=== PATIENT | male | born 1970 | race Caucasian/White ===

== ENCOUNTER 2022-06-12 10:39 | Inpatient (IN) ==
[2022-06-12] MEDS ORDERED: SODIUM CHLORIDE 0.9% 1,000 ML IV STA ×2 (11:40→13:44)
[2022-06-12 13:19] LABS: Basophils # 0.1 10*3/uL (0.0-0.2); Basophils % 0.4 % (0.0-0.8); Eosinophils # 0.1 10*3/uL (0.0-0.87); Eosinophils % 0.5 % (0.00-10.9); Hematocrit 36.8 VOL% (42.0-52.0); Hemoglobin 12.6 GM/DL (14.0-18.0); Immature Granulocytes % 3.6 %; Immature Granulocytes Absolute 0.83 #; Lymphocytes # 1.7 10*3/uL (1.4-4.0); Lymphocytes % 7.3 % (21.2-54.2); Mean Corpuscular HGB Conc 34.2 GM/DL (32-36); Mean Corpuscular Volume 96.8 FL (87-102); Mean Platelet Volume 10.6 FL (9.6-12.0); Monocytes # 2.8 10*3/uL (0.11-0.8); Neutrophils % 76.2 % (38.7-73.9); Platelet Count 59 T/CUMM (130-400); Red Cell Distribution Width 16.3 % (9.3-17.3)
[2022-06-12 13:27] LABS: PT Patient Result 21.4 SECS (10.1-12.1); Partial Thromboplastin Time 43.9 SECS (23.7-32.9)
[2022-06-12 13:38] LABS: Alanine Aminotransferase 33 U/L (16-61); Albumin 1.9 G/DL (3.4-5.0); Alkaline Phosphatase 260 U/L (45-117); Aspartate Amino Transferase 48 U/L (0-37); Blood Urea Nitrogen 13 MG/DL (7-18); Calcium 7.7 MG/DL (8.5-10.1); Carbon Dioxide 24 MMOL/L (21-32); Chloride 105 MMOL/L (98-107); Glucose 128 MG/DL (74-106); Osmolality,Calculated 269.2 MOS/KG (273-304); Potassium 4.2 MMOL/L (3.5-5.1); Sodium 134 MMOL/L (136-145); Total Protein 4.9 G/DL (6.4-8.2)
[2022-06-12] MEDS ORDERED: cefOXitin 1,000 MG in SODIUM CHLORIDE 0.9% 100 ML IV STA (13:40)
[2022-06-12] MEDS ORDERED: GENTAMICIN INJ 160 MG in SODIUM CHLORIDE 0.9% 100 ML IV STA (13:41)
[2022-06-12 13:45] LABS: Band Neutrophils 4 % (0-10); Eosinophils 1 % (0-10); Lymphocytes 11 % (20-55); Total Cells Counted 100
[2022-06-12 13:46] LABS: Platelet Estimate Decreased
[2022-06-12] MEDS ORDERED: ACETAMINOPHEN 325 MG TABLET PO PRN (14:01)
[2022-06-12] MEDS ORDERED: GLUCAGON 1 MG VIAL IM PRN (14:01)
[2022-06-12] MEDS ORDERED: DEXTROSE 10% 250 ML BAG IV PRN (14:01)
[2022-06-12] MEDS: ONDANSETRON 4 MG/2 ML VIAL IV PRN ×2 (14:53→20:43)
[2022-06-12] MEDS: MORPHINE 2 MG/1 ML SYRINGE IV PRN ×2 (14:54→20:46)
[2022-06-12] MEDS ORDERED: cefTRIAXone 2,000 MG in SODIUM CHLORIDE 0.9% 100 ML IV SCH (15:00)
[2022-06-12 15:02] LABS: Bilirubin,Urine Large mg/dL (Negative); Blood, Urine Trace mg/dL (Negative); Glucose,Urine (UA) Negative (Negative); Ketones,Urine Trace mg/dL (Negative); Nitrite,Urine Negative (Negative); Protein,Urine Negative (Negative); Urine Appearance Clear (Clear); Urine Color Amber (Yellow)
[2022-06-12 15:05] LABS: Mucus,Urine Occasional /LPF (Occasional); RBC,Urine 9 /HPF (0-4); Squamous Epithelial Cell,Urine Occasional /HPF (0-10)
[2022-06-12] MEDS ORDERED: SODIUM CHLORIDE 0.9% 1,000 ML IV PRN (16:21)
[2022-06-12] MEDS: PIPERACILLIN/TAZOBACTAM 3,375 MG in SODIUM CHLORIDE 0.9% 100 ML IV SCH (22:40)
[2022-06-13] MEDS: MORPHINE 2 MG/1 ML SYRINGE IV PRN ×4 (03:27→22:36)
[2022-06-13] MEDS: PIPERACILLIN/TAZOBACTAM 3,375 MG in SODIUM CHLORIDE 0.9% 100 ML IV SCH ×3 (05:57→20:26)
[2022-06-13 06:33] LABS: Basophils # 0.1 10*3/uL (0.0-0.2); Basophils % 0.8 % (0.0-0.8); Eosinophils % 5.7 % (0.00-10.9); Hematocrit 33.4 VOL% (42.0-52.0); Hemoglobin 11.4 GM/DL (14.0-18.0); Immature Granulocytes % 2.2 %; Immature Granulocytes Absolute 0.38 #; Lymphocytes % 17.4 % (21.2-54.2); Mean Corpuscular HGB Conc 34.1 GM/DL (32-36); Mean Corpuscular Volume 97.7 FL (87-102); Mean Platelet Volume 10.2 FL (9.6-12.0); Monocytes # 1.8 10*3/uL (0.11-0.8); Monocytes % 10.7 % (1.7-12.7); Neutrophils % 63.2 % (38.7-73.9); Platelet Count 49 T/CUMM (130-400); Red Blood Count 3.42 MC/CUMM (3.8-5.5); Red Cell Distribution Width 16.3 % (9.3-17.3); White Blood Count 17.2 T/CUMM (4-12)
[2022-06-13 06:53] LABS: Platelet Estimate Decreased
[2022-06-13 07:04] LABS: Albumin 1.7 G/DL (3.4-5.0); Bilirubin,Total 9.1 MG/DL (0.20-1.00); Calcium 7.5 MG/DL (8.5-10.1); Osmolality,Calculated 270.8 MOS/KG (273-304); Potassium 3.9 MMOL/L (3.5-5.1); Thyroid Stimulating Hormone 3.09 uIU/ml (0.358-3.74); Total Protein 4.7 G/DL (6.4-8.2)
[2022-06-13 08:03] LABS: INR 1.8; PT Patient Result 19.3 SECS (10.1-12.1)
[2022-06-13] MEDS ORDERED: MAGNESIUM SULF RIDER 2 GM/50 ML PREMIX IV ONE (08:30)
[2022-06-13] MEDS: PANTOPRAZOLE 40 MG TABLET PO SCH (11:36)
[2022-06-14] MEDS: PIPERACILLIN/TAZOBACTAM 3,375 MG in SODIUM CHLORIDE 0.9% 100 ML IV SCH ×2 (05:05→14:19)
[2022-06-14] MEDS: MORPHINE 2 MG/1 ML SYRINGE IV PRN ×2 (05:05→09:32)
[2022-06-14 05:49] LABS: Basophils # 0.1 10*3/uL (0.0-0.2); Basophils % 1.3 % (0.0-0.8); Eosinophils # 1.4 10*3/uL (0.0-0.87); Eosinophils % 14.5 % (0.00-10.9); Hematocrit 35.2 VOL% (42.0-52.0); Immature Granulocytes % 4.6 %; Immature Granulocytes Absolute 0.43 #; Lymphocytes # 2.4 10*3/uL (1.4-4.0); Lymphocytes % 25.7 % (21.2-54.2); Mean Corpuscular HGB Conc 34.1 GM/DL (32-36); Mean Corpuscular Volume 97.5 FL (87-102); Monocytes % 11.1 % (1.7-12.7); Neutrophils % 42.8 % (38.7-73.9); Platelet Count 57 T/CUMM (130-400); Red Blood Count 3.61 MC/CUMM (3.8-5.5); Red Cell Distribution Width 16.2 % (9.3-17.3); White Blood Count 9.3 T/CUMM (4-12)
[2022-06-14 06:13] LABS: Calcium 7.6 MG/DL (8.5-10.1); Osmolality,Calculated 271.8 MOS/KG (273-304); Potassium 3.8 MMOL/L (3.5-5.1)
[2022-06-14 06:40] LABS: Eosinophils 12 % (0-10); Lymphocytes 27 % (20-55); Platelet Estimate Decreased; Total Cells Counted 100
[2022-06-14] MEDS: PANTOPRAZOLE 40 MG TABLET PO SCH (09:31)
[2022-06-14] MEDS ORDERED: FUROSEMIDE 20 MG TABLET PO PRN (10:46)
[2022-06-14] MEDS ORDERED: AMOXICILLIN/CLAV 500 MG TABLET PO SCH (15:00)
[2022-06-14 15:47] VITALS: BP 117/52
== END 2022-06-14 17:11 | disposition home or self-care (01) | DRG 872 ==
LOC: N.ED 10:39 → N.EDINP 13:59 → SUATTDRO 13:59 → N.EDINP 15:19 → N.5E 15:28
PROVIDERS: ADMIT Hospitalist; ATTEND Internal Medicine

== ENCOUNTER 2022-07-02 21:01 | Inpatient (IN) ==
[2022-07-02] MEDS ORDERED: HYDROmorphone 1 MG/1 ML SYRINGE IV STA (21:58)
[2022-07-02] MEDS ORDERED: ONDANSETRON 4 MG/2 ML VIAL IV STA (21:58)
[2022-07-02] MEDS ORDERED: PIPERACILLIN/TAZOBACTAM 3,375 MG in SODIUM CHLORIDE 0.9% 100 ML IV STA (21:58)
[2022-07-02] MEDS ORDERED: IBUPROFEN 800 MG TABLET PO STA (21:58)
[2022-07-02] MEDS ORDERED: ALBUTEROL/IPRATROPIUM 3 ML NEB RESP TX STA (22:03)
[2022-07-02] MEDS ORDERED: methylPREDNISolone SOD SUC 125 MG/2 ML VIAL IV STA (22:03)
[2022-07-02 22:52] LABS: Basophils # 0.1 10*3/uL (0.0-0.2); Basophils % 0.5 % (0.0-0.8); Eosinophils # 0.1 10*3/uL (0.0-0.87); Eosinophils % 0.6 % (0.00-10.9); Hematocrit 36.1 VOL% (42.0-52.0); Hemoglobin 12.8 GM/DL (14.0-18.0); Immature Granulocytes % 1.1 %; Immature Granulocytes Absolute 0.17 #; Lymphocytes # 2.1 10*3/uL (1.4-4.0); Lymphocytes % 14.1 % (21.2-54.2); Mean Corpuscular HGB Conc 35.5 GM/DL (32-36); Mean Corpuscular Volume 94.8 FL (87-102); Mean Platelet Volume 10.8 FL (9.6-12.0); Monocytes # 1.8 10*3/uL (0.11-0.8); Monocytes % 12.1 % (1.7-12.7); Neutrophils % 71.6 % (38.7-73.9); Platelet Count 56 T/CUMM (130-400); Red Blood Count 3.81 MC/CUMM (3.8-5.5); Red Cell Distribution Width 16.3 % (9.3-17.3); White Blood Count 15.1 T/CUMM (4-12)
[2022-07-02 23:08] LABS: Alanine Aminotransferase 49 U/L (16-61); Alkaline Phosphatase 245 U/L (45-117); Amylase 40 U/L (25-115); Aspartate Amino Transferase 80 U/L (0-37); Blood Urea Nitrogen 13 MG/DL (7-18); Calcium 7.5 MG/DL (8.5-10.1); Carbon Dioxide 25 MMOL/L (21-32); Chloride 105 MMOL/L (98-107); Glucose 121 MG/DL (74-106); Osmolality,Calculated 273.8 MOS/KG (273-304); Potassium 3.5 MMOL/L (3.5-5.1); Sodium 137 MMOL/L (136-145); Total Protein 4.8 G/DL (6.4-8.2)
[2022-07-03] MEDS ORDERED: MAGNESIUM SULF RIDER 2 GM/50 ML PREMIX IV STA (00:08)
[2022-07-03] MEDS ORDERED: SODIUM CHLORIDE 0.9% 1,000 ML IV STA ×2 (00:17→06:27)
[2022-07-03] MEDS ORDERED: ALUMINUM/MAGNES/SIMETH MAX STR 30 ML UDCUP PO PRN (01:12)
[2022-07-03] MEDS ORDERED: DEXTROSE 10% 250 ML BAG IV PRN (01:12)
[2022-07-03] MEDS ORDERED: SODIUM CHLORIDE 0.9% 1,800 ML IV STA (01:12)
[2022-07-03] MEDS ORDERED: GLUCAGON 1 MG VIAL IM PRN (01:12)
[2022-07-03] MEDS ORDERED: cefTRIAXone 2,000 MG in SODIUM CHLORIDE 0.9% 100 ML IV SCH (01:30)
[2022-07-03] MEDS: ONDANSETRON 4 MG/2 ML VIAL IV PRN ×2 (02:48→06:28)
[2022-07-03] MEDS: MORPHINE 2 MG/1 ML SYRINGE IV PRN ×5 (02:49→21:37)
[2022-07-03 03:12] LABS: Bacteria,Urine Occasional /HPF (Few); Mucus,Urine Occasional /LPF (Occasional); RBC,Urine 9 /HPF (0-4); Squamous Epithelial Cell,Urine Occasional /HPF (0-10)
[2022-07-03 03:14] LABS: Bilirubin,Urine Moderate mg/dL (Negative); Blood, Urine Small mg/dL (Negative); Glucose,Urine (UA) Negative (Negative); Ketones,Urine Negative (Negative); Nitrite,Urine Negative (Negative); Protein,Urine Trace mg/dL (Negative); Urine Appearance Clear (Clear); Urine Color Amber (Yellow); Urine Urobilinogen 0.2 eU/dL (<2.0); Urine pH 5.5 (4.5-8.0)
[2022-07-03 04:32] LABS: Basophils # 0.1 10*3/uL (0.0-0.2); Basophils % 0.4 % (0.0-0.8); Eosinophils # 0.1 10*3/uL (0.0-0.87); Eosinophils % 0.9 % (0.00-10.9); Hematocrit 35.3 VOL% (42.0-52.0); Hemoglobin 12.3 GM/DL (14.0-18.0); Immature Granulocytes Absolute 0.13 #; Lymphocytes # 1.3 10*3/uL (1.4-4.0); Lymphocytes % 10.1 % (21.2-54.2); Mean Corpuscular HGB Conc 34.8 GM/DL (32-36); Monocytes # 0.8 10*3/uL (0.11-0.8); Monocytes % 6.2 % (1.7-12.7); Neutrophils % 81.4 % (38.7-73.9); Platelet Count 42 T/CUMM (130-400); Red Blood Count 3.64 MC/CUMM (3.8-5.5); Red Cell Distribution Width 16.3 % (9.3-17.3)
[2022-07-03 04:42] LABS: INR 2.1; PT Patient Result 22.3 SECS (10.1-12.1)
[2022-07-03 04:48] LABS: Osmolality,Calculated 274.8 MOS/KG (273-304); Potassium 3.6 MMOL/L (3.5-5.1)
[2022-07-03 04:59] LABS: Albumin 1.7 G/DL (3.4-5.0); Bilirubin,Direct 4.96 MG/DL (0.0-0.20); Bilirubin,Indirect 6.9 MG/DL (0.0-1.0); Bilirubin,Total 11.9 MG/DL (0.20-1.00); Total Protein 4.5 G/DL (6.4-8.2)
[2022-07-03 05:02] LABS: Platelet Estimate Decreased
[2022-07-03] MEDS: ALBUTEROL 2.5 MG/3 ML NEB RESP TX SCH ×3 (07:10→19:00)
[2022-07-03] MEDS: PANTOPRAZOLE 40 MG TABLET PO SCH (10:51)
[2022-07-03] MEDS: DOCUSATE SODIUM 100 MG CAPSULE PO SCH ×2 (10:51→21:29)
[2022-07-03] MEDS: guaiFENesin/DM ER 600-30 MG TABLET PO SCH ×2 (10:51→21:29)
[2022-07-03] MEDS: SODIUM CHLORIDE 0.9% 1,000 ML IV SCH (13:30)
[2022-07-03] MEDS: PIPERACILLIN/TAZOBACTAM 3,375 MG in SODIUM CHLORIDE 0.9% 100 ML IV SCH ×2 (14:15→21:42)
[2022-07-03] MEDS ORDERED: ALBUMIN 25% 25 GM/100 ML VIAL IV ONE (15:43)
[2022-07-04] MEDS: ALBUTEROL 2.5 MG/3 ML NEB RESP TX SCH ×5 (00:28→19:23)
[2022-07-04] MEDS: MORPHINE 2 MG/1 ML SYRINGE IV PRN ×4 (01:36→21:55)
[2022-07-04] MEDS: SODIUM CHLORIDE 0.9% 1,000 ML IV SCH ×2 (04:53→12:42)
[2022-07-04] MEDS: PIPERACILLIN/TAZOBACTAM 3,375 MG in SODIUM CHLORIDE 0.9% 100 ML IV SCH ×3 (06:30→22:00)
[2022-07-04 07:32] LABS: Basophils % 0.2 % (0.0-0.8); Eosinophils % 0.2 % (0.00-10.9); Hematocrit 35.4 VOL% (42.0-52.0); Hemoglobin 12.3 GM/DL (14.0-18.0); Immature Granulocytes % 2.1 %; Immature Granulocytes Absolute 0.42 #; Lymphocytes # 1.5 10*3/uL (1.4-4.0); Lymphocytes % 7.5 % (21.2-54.2); Mean Corpuscular HGB Conc 34.7 GM/DL (32-36); Mean Corpuscular Volume 96.2 FL (87-102); Mean Platelet Volume 11.4 FL (9.6-12.0); Monocytes # 1.4 10*3/uL (0.11-0.8); Monocytes % 6.8 % (1.7-12.7); Neutrophils % 83.2 % (38.7-73.9); Platelet Count 45 T/CUMM (130-400); Red Blood Count 3.68 MC/CUMM (3.8-5.5); Red Cell Distribution Width 15.9 % (9.3-17.3); White Blood Count 20.2 T/CUMM (4-12)
[2022-07-04 07:35] LABS: INR 2.2
[2022-07-04 07:53] LABS: Band Neutrophils 6 % (0-10); Lymphocytes 3 % (20-55); Total Cells Counted 100
[2022-07-04 07:56] LABS: Albumin 1.9 G/DL (3.4-5.0); Calcium 7.7 MG/DL (8.5-10.1); Macrocytosis Slight; Osmolality,Calculated 283.8 MOS/KG (273-304); Potassium 3.7 MMOL/L (3.5-5.1); Total Protein 4.9 G/DL (6.4-8.2)
[2022-07-04 07:57] LABS: Acanthocytes Few; Burr Cells Slight; Platelet Estimate Decreased
[2022-07-04 08:01] LABS: Bilirubin,Total 12.6 MG/DL (0.20-1.00)
[2022-07-04] MEDS ORDERED: PHYTONADIONE INJ 2.5 MG in SODIUM CHLORIDE 0.9% 25 ML IV ONE (08:56)
[2022-07-04] MEDS ORDERED: VANCOMYCIN INJ 1,000 MG in SODIUM CHLORIDE 0.9% 250 ML IV SCH (09:00)
[2022-07-04] MEDS: PANTOPRAZOLE 40 MG TABLET PO SCH (10:05)
[2022-07-04] MEDS: guaiFENesin/DM ER 600-30 MG TABLET PO SCH ×2 (10:05→21:53)
[2022-07-04] MEDS: DOCUSATE SODIUM 100 MG CAPSULE PO SCH ×2 (10:05→21:53)
[2022-07-04] MEDS ORDERED: VANCOMYCIN INJ 2,000 MG in SODIUM CHLORIDE 0.9% 500 ML IV ONE (11:00)
[2022-07-04 12:48] LABS: INR 2.1; PT Patient Result 22.4 SECS (10.1-12.1)
[2022-07-04] MEDS ORDERED: PHYTONADIONE INJ 5 MG in SODIUM CHLORIDE 0.9% 50 ML IV ONE (15:17)
[2022-07-04] MEDS: VANCOMYCIN INJ 1,500 MG in SODIUM CHLORIDE 0.9% 500 ML IV SCH (23:21)
[2022-07-05] MEDS ORDERED: ALBUTEROL/IPRATROPIUM 3 ML NEB RESP TX ONE (01:01)
[2022-07-05] MEDS: ALBUTEROL 2.5 MG/3 ML NEB RESP TX SCH ×4 (01:13→19:25)
[2022-07-05 05:15] LABS: Basophils # 0.1 10*3/uL (0.0-0.2); Basophils % 0.3 % (0.0-0.8); Eosinophils # 0.1 10*3/uL (0.0-0.87); Eosinophils % 0.4 % (0.00-10.9); Hematocrit 34.7 VOL% (42.0-52.0); Hemoglobin 12.1 GM/DL (14.0-18.0); Immature Granulocytes % 4.4 %; Immature Granulocytes Absolute 0.84 #; Lymphocytes # 1.7 10*3/uL (1.4-4.0); Lymphocytes % 9.1 % (21.2-54.2); Mean Corpuscular HGB Conc 34.9 GM/DL (32-36); Mean Corpuscular Volume 95.3 FL (87-102); Mean Platelet Volume 11.3 FL (9.6-12.0); Monocytes # 2.1 10*3/uL (0.11-0.8); Monocytes % 10.8 % (1.7-12.7); NRBC # 0.03 10*3/uL; Platelet Count 57 T/CUMM (130-400); Red Blood Count 3.64 MC/CUMM (3.8-5.5); White Blood Count 19.1 T/CUMM (4-12)
[2022-07-05 05:24] LABS: INR 2.1; PT Patient Result 21.7 SECS (10.1-12.1)
[2022-07-05] MEDS: PIPERACILLIN/TAZOBACTAM 3,375 MG in SODIUM CHLORIDE 0.9% 100 ML IV SCH ×3 (05:28→22:11)
[2022-07-05] MEDS: MORPHINE 2 MG/1 ML SYRINGE IV PRN ×3 (05:32→22:04)
[2022-07-05 05:42] LABS: Band Neutrophils 3 % (0-10); Lymphocytes 5 % (20-55); Total Cells Counted 100
[2022-07-05 05:43] LABS: Microcytosis Slight; Ovalocytes Slight; Platelet Estimate Decreased
[2022-07-05 05:53] LABS: Albumin 1.9 G/DL (3.4-5.0); Bilirubin,Total 10.3 MG/DL (0.20-1.00); Calcium 8.1 MG/DL (8.5-10.1); Osmolality,Calculated 280.7 MOS/KG (273-304); Potassium 3.9 MMOL/L (3.5-5.1); Total Protein 4.9 G/DL (6.4-8.2)
[2022-07-05] MEDS ORDERED: PHYTONADIONE 10 MG/1 ML AMP SUBCUT ONE (08:32)
[2022-07-05] MEDS ORDERED: FUROSEMIDE 40 MG TABLET PO SCH (09:00)
[2022-07-05] MEDS: DOCUSATE SODIUM 100 MG CAPSULE PO SCH ×2 (09:20→22:04)
[2022-07-05] MEDS: PANTOPRAZOLE 40 MG TABLET PO SCH (09:21)
[2022-07-05] MEDS: guaiFENesin/DM ER 600-30 MG TABLET PO SCH ×2 (09:21→22:03)
[2022-07-05] MEDS: VANCOMYCIN INJ 1,500 MG in SODIUM CHLORIDE 0.9% 500 ML IV SCH (13:13)
[2022-07-05] MEDS: FUROSEMIDE 40 MG TABLET PO SCH (16:10)
[2022-07-05] MEDS: ONDANSETRON 4 MG/2 ML VIAL IV PRN (22:04)
[2022-07-06] MEDS: ALBUTEROL 2.5 MG/3 ML NEB RESP TX SCH ×3 (00:46→13:15)
[2022-07-06] MEDS: VANCOMYCIN INJ 1,500 MG in SODIUM CHLORIDE 0.9% 500 ML IV SCH ×2 (02:24→15:20)
[2022-07-06] MEDS: PIPERACILLIN/TAZOBACTAM 3,375 MG in SODIUM CHLORIDE 0.9% 100 ML IV SCH ×3 (05:39→22:23)
[2022-07-06] MEDS: PANTOPRAZOLE 40 MG TABLET PO SCH (10:19)
[2022-07-06] MEDS: FUROSEMIDE 40 MG TABLET PO SCH ×2 (10:19→16:14)
[2022-07-06] MEDS: DOCUSATE SODIUM 100 MG CAPSULE PO SCH ×2 (10:19→22:21)
[2022-07-06 10:24] LABS: Basophils # 0.1 10*3/uL (0.0-0.2); Basophils % 0.6 % (0.0-0.8); Eosinophils # 0.7 10*3/uL (0.0-0.87); Eosinophils % 5.3 % (0.00-10.9); Hematocrit 33.3 VOL% (42.0-52.0); Hemoglobin 11.5 GM/DL (14.0-18.0); Immature Granulocytes % 4.4 %; Immature Granulocytes Absolute 0.54 #; Lymphocytes # 2.6 10*3/uL (1.4-4.0); Lymphocytes % 21.2 % (21.2-54.2); Mean Corpuscular HGB Conc 34.5 GM/DL (32-36); Mean Corpuscular Volume 95.7 FL (87-102); Mean Platelet Volume 10.8 FL (9.6-12.0); Monocytes # 1.6 10*3/uL (0.11-0.8); Monocytes % 12.5 % (1.7-12.7); Platelet Count 52 T/CUMM (130-400); Red Blood Count 3.48 MC/CUMM (3.8-5.5); Red Cell Distribution Width 16.3 % (9.3-17.3); White Blood Count 12.4 T/CUMM (4-12)
[2022-07-06 10:34] LABS: INR 2.1; PT Patient Result 22.2 SECS (10.1-12.1)
[2022-07-06 10:45] LABS: Band Neutrophils 4 % (0-10); Eosinophils 10 % (0-10); Lymphocytes 16 % (20-55); Total Cells Counted 100
[2022-07-06 10:46] LABS: Albumin 1.9 G/DL (3.4-5.0); Anisocytosis 1+; Bilirubin,Total 9.4 MG/DL (0.20-1.00); Calcium 7.5 MG/DL (8.5-10.1); Macrocytosis Slight; Osmolality,Calculated 282.4 MOS/KG (273-304); Platelet Estimate Decreased; Potassium 3.1 MMOL/L (3.5-5.1); Total Protein 4.4 G/DL (6.4-8.2)
[2022-07-06] MEDS ORDERED: POTASSIUM CHLORIDE 20 MEQ TABLET PO ONE ×2 (11:00→16:00)
[2022-07-06] MEDS: guaiFENesin/DM ER 600-30 MG TABLET PO SCH ×2 (11:32→22:21)
[2022-07-06] MEDS ORDERED: FUROSEMIDE 40 MG/4 ML VIAL IV ONE (12:03)
[2022-07-06] MEDS: MORPHINE 2 MG/1 ML SYRINGE IV PRN (18:24)
[2022-07-07] MEDS: VANCOMYCIN INJ 1,500 MG in SODIUM CHLORIDE 0.9% 500 ML IV SCH (03:52)
[2022-07-07] MEDS: MORPHINE 2 MG/1 ML SYRINGE IV PRN (04:02)
[2022-07-07 04:42] LABS: Basophils # 0.2 10*3/uL (0.0-0.2); Basophils % 1.7 % (0.0-0.8); Eosinophils # 1.1 10*3/uL (0.0-0.87); Eosinophils % 10.1 % (0.00-10.9); Hematocrit 32.3 VOL% (42.0-52.0); Hemoglobin 11.2 GM/DL (14.0-18.0); Immature Granulocytes % 7.9 %; Immature Granulocytes Absolute 0.86 #; Lymphocytes # 2.8 10*3/uL (1.4-4.0); Mean Corpuscular HGB Conc 34.7 GM/DL (32-36); Mean Corpuscular Volume 95.8 FL (87-102); Mean Platelet Volume 10.6 FL (9.6-12.0); Monocytes # 1.2 10*3/uL (0.11-0.8); Monocytes % 10.9 % (1.7-12.7); NRBC # 0.03 10*3/uL; Neutrophils % 43.4 % (38.7-73.9); Platelet Count 45 T/CUMM (130-400); Red Blood Count 3.37 MC/CUMM (3.8-5.5); Red Cell Distribution Width 16.4 % (9.3-17.3); White Blood Count 10.9 T/CUMM (4-12)
[2022-07-07 04:50] LABS: INR 2.1; PT Patient Result 22.5 SECS (10.1-12.1)
[2022-07-07 05:05] LABS: Albumin 1.7 G/DL (3.4-5.0); Bilirubin,Total 8.5 MG/DL (0.20-1.00); Calcium 7.5 MG/DL (8.5-10.1); Osmolality,Calculated 278.4 MOS/KG (273-304); Total Protein 4.2 G/DL (6.4-8.2)
[2022-07-07 05:27] LABS: Eosinophils 9 % (0-10); Lymphocytes 21 % (20-55); Platelet Estimate Decreased; Total Cells Counted 100
[2022-07-07] MEDS: PIPERACILLIN/TAZOBACTAM 3,375 MG in SODIUM CHLORIDE 0.9% 100 ML IV SCH (05:57)
[2022-07-07] MEDS: DOCUSATE SODIUM 100 MG CAPSULE PO SCH (08:28)
[2022-07-07] MEDS: FUROSEMIDE 40 MG TABLET PO SCH (08:28)
[2022-07-07] MEDS: PANTOPRAZOLE 40 MG TABLET PO SCH (08:28)
[2022-07-07] MEDS: guaiFENesin/DM ER 600-30 MG TABLET PO SCH (08:28)
[2022-07-07] MEDS ORDERED: POTASSIUM CHLORIDE 20 MEQ TABLET PO ONE (08:31)
[2022-07-07] MEDS ORDERED: MAGNESIUM SULF RIDER 4 GM/100 ML PREMIX IV ONE (08:31)
[2022-07-07] MEDS ORDERED: FUROSEMIDE 40 MG/4 ML VIAL IV ONE (08:32)
[2022-07-07 11:13] VITALS: BP 125/47
== END 2022-07-07 15:24 | disposition home or self-care (01) | DRG 432 ==
LOC: N.ED 21:01 → N.EDINP 07-03 01:13 → N.TELEN 07-03 17:58
PROVIDERS: ADMIT Internal Medicine; ATTEND Internal Medicine

== ENCOUNTER 2022-09-03 20:39 | Inpatient (IN) ==
[2022-09-03 21:59] LABS: Basophils # 0.1 10*3/uL (0.0-0.2); Basophils % 0.3 % (0.0-0.8); Eosinophils # 0.3 10*3/uL (0.0-0.87); Eosinophils % 1.5 % (0.00-10.9); Hematocrit 25.1 VOL% (42.0-52.0); Hemoglobin 8.8 GM/DL (14.0-18.0); Immature Granulocytes % 3.1 %; Immature Granulocytes Absolute 0.58 #; Lymphocytes # 1.6 10*3/uL (1.4-4.0); Lymphocytes % 8.6 % (21.2-54.2); Mean Corpuscular HGB Conc 35.1 GM/DL (32-36); Mean Corpuscular Volume 103.3 FL (87-102); Mean Platelet Volume 9.8 FL (9.6-12.0); Monocytes # 2.3 10*3/uL (0.11-0.8); Monocytes % 12.5 % (1.7-12.7); Platelet Count 69 T/CUMM (130-400); Red Blood Count 2.43 MC/CUMM (3.8-5.5); White Blood Count 18.7 T/CUMM (4-12)
[2022-09-03 22:09] LABS: INR 2.5; PT Patient Result 26.1 SECS (10.1-12.1)
[2022-09-03 22:24] LABS: Alanine Aminotransferase 95 U/L (16-61); Albumin 1.4 G/DL (3.4-5.0); Alkaline Phosphatase 183 U/L (45-117); Aspartate Amino Transferase 116 U/L (0-37); Blood Urea Nitrogen 29 MG/DL (7-18); Calcium 7.6 MG/DL (8.5-10.1); Carbon Dioxide 24 MMOL/L (21-32); Chloride 99 MMOL/L (98-107); Glucose 166 MG/DL (74-106); Osmolality,Calculated 271.7 MOS/KG (273-304); Potassium 4.9 MMOL/L (3.5-5.1); Sodium 131 MMOL/L (136-145); Total Protein 3.7 G/DL (6.4-8.2)
[2022-09-03 22:35] LABS: Lymphocytes 7 % (20-55); Platelet Estimate Decreased; Total Cells Counted 100
[2022-09-03] MEDS ORDERED: cefTRIAXone 1,000 MG in SODIUM CHLORIDE 0.9% 100 ML IV STA (23:40)
[2022-09-04] MEDS ORDERED: NICOTINE 21 MG/24 HR PATCH TRANSDERM PRN (00:52)
[2022-09-04] MEDS ORDERED: diphenhydrAMINE CAP 25 MG CAPSULE PO PRN (00:52)
[2022-09-04] MEDS ORDERED: ZALEPLON 5 MG CAPSULE PO PRN (00:52)
[2022-09-04] MEDS ORDERED: guaiFENesin/DM ER 600-30 MG TABLET PO PRN (00:52)
[2022-09-04] MEDS ORDERED: hydrALAZINE 20 MG/1 ML VIAL IV PRN (00:52)
[2022-09-04] MEDS ORDERED: ALBUTEROL/IPRATROPIUM 3 ML NEB RESP TX PRN (00:52)
[2022-09-04] MEDS ORDERED: MORPHINE 2 MG/1 ML SYRINGE IV PRN (00:52)
[2022-09-04] MEDS ORDERED: ONDANSETRON 4 MG/2 ML VIAL IV PRN (00:52)
[2022-09-04] MEDS: MEROPENEM 500 MG in SODIUM CHLORIDE 0.9% 100 ML IV SCH ×3 (01:20→14:45)
[2022-09-04] MEDS ORDERED: VANCOMYCIN INJ 1,500 MG in SODIUM CHLORIDE 0.9% 500 ML IV SCH (02:00)
[2022-09-04] MEDS ORDERED: ACETAMINOPHEN 325 MG TABLET PO ONE (03:15)
[2022-09-04 05:40] LABS: Basophils # 0.1 10*3/uL (0.0-0.2); Basophils % 0.4 % (0.0-0.8); Eosinophils # 0.6 10*3/uL (0.0-0.87); Eosinophils % 3.6 % (0.00-10.9); Hematocrit 23.4 VOL% (42.0-52.0); Hemoglobin 8.3 GM/DL (14.0-18.0); Immature Granulocytes % 3.9 %; Immature Granulocytes Absolute 0.65 #; Lymphocytes # 1.9 10*3/uL (1.4-4.0); Lymphocytes % 11.2 % (21.2-54.2); Mean Corpuscular HGB Conc 35.5 GM/DL (32-36); Mean Corpuscular Volume 103.5 FL (87-102); Mean Platelet Volume 9.8 FL (9.6-12.0); Monocytes # 2.3 10*3/uL (0.11-0.8); Monocytes % 13.8 % (1.7-12.7); Neutrophils % 67.1 % (38.7-73.9); Platelet Count 56 T/CUMM (130-400); Red Blood Count 2.26 MC/CUMM (3.8-5.5); Red Cell Distribution Width 16.5 % (9.3-17.3); White Blood Count 16.9 T/CUMM (4-12)
[2022-09-04 05:56] LABS: Albumin 1.3 G/DL (3.4-5.0); Calcium 7.5 MG/DL (8.5-10.1); Osmolality,Calculated 263.1 MOS/KG (273-304); Potassium 4.9 MMOL/L (3.5-5.1); Total Protein 3.5 G/DL (6.4-8.2)
[2022-09-04 05:59] LABS: Bilirubin,Total 14.6 MG/DL (0.20-1.00)
[2022-09-04 06:07] LABS: Eosinophils 2 % (0-10); Lymphocytes 7 % (20-55); Platelet Estimate Decreased; Total Cells Counted 100
[2022-09-04] MEDS ORDERED: PANTOPRAZOLE 40 MG TABLET PO SCH (09:00)
[2022-09-04 09:14] LABS: INR 2.6; PT Patient Result 27.3 SECS (10.1-12.1)
[2022-09-04] MEDS: LACTULOSE 20 GM/30 ML UDCUP PO SCH ×2 (09:53→14:46)
[2022-09-04 10:37] LABS: Bacteria,Urine Occasional /HPF (Few); Glucose,Urine (UA) 100 mg/dL (Negative); Ketones,Urine 15 mg/dL (Negative); Mucus,Urine Occasional /LPF (Occasional); Nitrite,Urine Negative (Negative); Protein,Urine 30 mg/dL (Negative); RBC,Urine 7 /HPF (0-4); Squamous Epithelial Cell,Urine Occasional /HPF (0-10); Urine Appearance Clear (Clear); Urine Color Amber (Yellow)
[2022-09-04 10:38] LABS: Bilirubin,Urine Large mg/dL (Negative); Blood, Urine Negative (Negative)
[2022-09-04] MEDS ORDERED: ALBUMIN 25% 50 GM/200 ML VIAL IV ONE (12:00)
[2022-09-04] MEDS ORDERED: ALBUMIN 25% 25 GM/100 ML VIAL IV ONE (12:20)
[2022-09-04 13:57] LABS: Neutrophils,Peritoneal Fluid 98 %
[2022-09-04 13:59] LABS: RBC,Peritoneal Fluid < 1 T/CUMM
[2022-09-04 15:20] VITALS: BP 91/41
== END 2022-09-04 18:39 | disposition hospice, home (50) | DRG 373 ==
LOC: N.ED 20:39 → N.3E 09-04 00:52
PROVIDERS: ADMIT Family Medicine; ATTEND Family Medicine